=== PATIENT | female | born 1985 | race Two or more races ===

== ENCOUNTER 2020-11-11 07:36 | Day surgery (SDC) | payer OTHER ==
[2020-11-11] MEDS ORDERED: MOTRIN IB200 M1 PO (11:59)
== END 2020-11-11 17:50 | disposition home or self-care (01) ==
LOC: CIR.AMB 07:36
PROVIDERS: ATTEND Obstetrics & Gynecology
DX: N87.1 Moderate cervical dysplasia (principal); Z20.822 Contact with and (suspected) exposure to COVID-19